=== PATIENT | male | born 1960 | race Caucasian/White ===

== ENCOUNTER → 2018-07-16 | Outpatient (CLI) | payer BC ==
[~2018-07-16] VITALS: Ht 193 cm; Wt 108.9 kg
[2018-07-16 16:08] LABS: Bilirubin, Direct 0.2 mg/dL (0-0.2)
[2018-07-16 16:10] LABS: Bilirubin, Total 0.4 mg/dL (0.2-1.0); Total Protein 7.9 g/dL (6.4-8.2)
== END | disposition home or self-care (01) ==
LOC: Rad HDHVI 13:05
PROVIDERS: ATTEND Internal Medicine Cardiovascular Disease
DX: I20.0 Unstable angina (principal); R06.01 Orthopnea; R06.02 Shortness of breath; R42 Dizziness and giddiness; E78.5 Hyperlipidemia, unspecified; K74.1 Hepatic sclerosis; I51.7 Cardiomegaly
CPT/HCPCS: 36415; 78452; 80061; 80076; 93017; 93306; 93880; 96374; A9500